=== PATIENT | female | born 1985 | race Caucasian/White ===

== ENCOUNTER 2016-05-14 11:49 | Emergency (ER) | payer SELFPAY ==
[2016-05-14 12:52] LABS: BASOPHILS 0.1 % (0.0-2.0); EOSINOPHILS 1.4 % (0-7); HEMATOCRIT 37.1 % (36.0-48.0); HEMOGLOBIN 12.4 g/dL (12-16); IMMATURE GRANULOCYTES 0.1 % (0-5); LYMPHOCYTES 28.3 % (15-50); MCH 30.9 pg (26.0-34.0); MCHC 33.4 g/dL (31.0-37.0); MCV 92.5 fL (80.0-100.0); MONOCYTES 6.5 % (2-11); NEUTROPHILS 63.6 % (40-80); PLATELET COUNT 239 10x3/uL (130-400); RBC 4.01 10x6/uL (4.00-5.40); RDW 12.8 % (11.5-14.5)
[2016-05-14 12:54] LABS: APPEARANCE CLEAR (CLEAR); BILIRUBIN NEGATIVE (NEGATIVE); COLOR YELLOW (YELLOW); GLUCOSE NEGATIVE (NEGATIVE); KETONE NEGATIVE (NEGATIVE); LEUKOCYTE ESTERASE NEGATIVE (NEGATIVE); NITRITE NEGATIVE (NEGATIVE); PROTEIN NEGATIVE (NEGATIVE); SPECIFIC GRAVITY 1.015 (1.005-1.020); UROBILINOGEN NORMAL (NORMAL)
[2016-05-14 13:08] LABS: ALBUMIN 3.8 g/dL (3.4-5.0); ALKALINE PHOSPHATASE 49 U/L (46-116); ALT (SGPT) 29 U/L (10-68); CALC OSMOLALITY 275 mosm/kg (275-300); CALCIUM 9.2 mg/dL (8.5-10.1); CHLORIDE - SERUM 102 mmol/L (98-107); CREATININE - SERUM 0.6 mg/dL (0.6-1.3); GLUCOSE 89 mg/dL (74-106); POTASSIUM - SERUM 3.7 mmol/L (3.5-5.1); PROTEIN - SERUM 7.9 g/dL (6.4-8.2); SODIUM 138 mmol/L (136-145); UREA NITROGEN 14 mg/dL (7-18); eGFR NON AFRICAN AMERICAN > 90 mL/min (90-120)
[2016-05-14 13:30] LABS: HCG - QUANTITATIVE (MATERNAL) 27029 mIU/mL
== END 2016-05-14 15:14 | disposition home or self-care (01) ==
LOC: D.ER 11:49
PROVIDERS: Emergency Medicine
DX: O34.81 Maternal care for other abnormalities of pelvic organs, first trimester (principal); N83.202 Unspecified ovarian cyst, left side; Z3A.01 Less than 8 weeks gestation of pregnancy

== ENCOUNTER 2017-09-04 17:58 | Emergency (ER) | payer MEDICAID ==
[~2017-09-04] VITALS: Ht 175.3 cm; Wt 88.6 kg
[2017-09-04 18:00] VITALS: BP 129/79; Ht 175.3 cm; Wt 88.6 kg
[2017-09-04] MEDS ORDERED: CELEXA10 MG PO (18:02)
[2017-09-04] MEDS ORDERED: VALIUM10 MG PO (18:03)
[2017-09-04] MEDS ORDERED: ADDERALL 10 MG10 MG PO (18:03)
[2017-09-04 19:11] LABS: BASOPHILS 0.2 % (0-2); EOSINOPHILS 0.2 % (0-7); HEMATOCRIT 38.1 % (36.0-48.0); IMMATURE GRANULOCYTES 0.2 % (0-5); LYMPHOCYTES 9.5 % (15-50); MCH 31.6 pg (26.0-34.0); MCHC 34.1 g/dL (31.0-37.0); MCV 92.7 fL (80.0-100.0); MEAN PLATELET VOLUME 10.9 fL (7.4-10.4); NEUTROPHILS 85.9 % (40-80); PLATELET COUNT 261 10x3/uL (130-400); RBC 4.11 10x6/uL (4.00-5.40); RDW 14.3 % (11.5-14.5); WBC 12.7 10x3/uL (4.8-10.8)
[2017-09-04 19:24] LABS: ALBUMIN 3.6 g/dL (3.4-5.0); ALKALINE PHOSPHATASE 80 U/L (46-116); ALT (SGPT) 22 U/L (10-68); BILIRUBIN - TOTAL 0.36 mg/dL (0.2-1.3); CALC OSMOLALITY 281 mosm/kg (275-300); CALCIUM 8.7 mg/dL (8.5-10.1); CARBON DIOXIDE 26.3 mmol/L (21.0-32.0); CHLORIDE - SERUM 108 mmol/L (98-107); CREATININE - SERUM 0.9 mg/dL (0.6-1.3); GLUCOSE 93 mg/dL (74-106); POTASSIUM - SERUM 3.9 mmol/L (3.5-5.1); PROTEIN - SERUM 7.5 g/dL (6.4-8.2); SODIUM 142 mmol/L (136-145); UREA NITROGEN 10 mg/dL (7-18); eGFR NON AFRICAN AMERICAN 78 mL/min (90-120)
[2017-09-04 19:34] LABS: THYROID STIMULATING HORMONE 0.52 uIU/mL (0.36-3.74)
[2017-09-04 20:18] LABS: APPEARANCE CLEAR (CLEAR); BILIRUBIN NEGATIVE (NEGATIVE); COLOR YELLOW (YELLOW); GLUCOSE NEGATIVE (NEGATIVE); KETONE SMALL mg/dL (NEGATIVE); NITRITE NEGATIVE (NEGATIVE); PROTEIN NEGATIVE (NEGATIVE); UROBILINOGEN NORMAL (NORMAL)
[2017-09-04 20:19] LABS: HCG SERUM NEGATIVE (NEGATIVE)
[2017-09-04 20:27] LABS: UDS - AMPHET NEGATIVE QUAL (NEGATIVE); UDS - BARB NEGATIVE QUAL (NEGATIVE); UDS - BENZO POSITIVE QUAL (NEGATIVE); UDS - COCAINE NEGATIVE QUAL (NEGATIVE); UDS - OPIATE NEGATIVE QUAL (NEGATIVE); UDS - PCP NEGATIVE QUAL (NEGATIVE); UDS - THC POSITIVE QUAL (NEGATIVE)
== END 2017-09-04 23:12 | disposition home or self-care (01) ==
LOC: D.ER 17:58
PROVIDERS: Emergency Medicine; Family Medicine
DX: F53 Mental and behavioral disorders associated with the puerperium, not elsewhere classified (principal); F41.9 Anxiety disorder, unspecified; F17.200 Nicotine dependence, unspecified, uncomplicated

== ENCOUNTER 2017-12-14 01:07 | Emergency (ER) | payer MEDICAID ==
[~2017-12-14] VITALS: Ht 175.3 cm; Wt 75.0 kg
[~2017-12-14 01:07] MED LIST: ADDERALL 10 MG10 MG PO; CELEXA10 MG PO; VALIUM10 MG PO
[2017-12-14 01:10] VITALS: Ht 175.3 cm; Wt 75.0 kg
[2017-12-14 01:51] VITALS: BP 129/88
== END 2017-12-14 01:40 | disposition home or self-care (01) ==
LOC: D.ER 01:07
DX: S00.83XA Contusion of other part of head, initial encounter (principal); W22.8XXA Striking against or struck by other objects, initial encounter; Y93.89 Activity, other specified; Y92.019 Unspecified place in single-family (private) house as the place of occurrence of the external cause; S00.81XA Abrasion of other part of head, initial encounter; G40.909 Epilepsy, unspecified, not intractable, without status epilepticus

== ENCOUNTER 2018-02-02 21:45 | Emergency (ER) | payer MEDICAID ==
[~2018-02-02] VITALS: Ht 175.3 cm; Wt 71.8 kg
[2018-02-02 21:48] VITALS: Ht 175.3 cm; Wt 71.8 kg
[2018-02-02 23:04] LABS: BASOPHILS 0.2 % (0-2); EOSINOPHILS 0.8 % (0-7); HEMATOCRIT 36.4 % (36.0-48.0); HEMOGLOBIN 12.2 g/dL (12-16); IMMATURE GRANULOCYTES 0.1 % (0-5); MCH 31.6 pg (26.0-34.0); MCHC 33.5 g/dL (31.0-37.0); MCV 94.3 fL (80.0-100.0); MEAN PLATELET VOLUME 11.2 fL (7.4-10.4); MONOCYTES 4.9 % (2-11); PLATELET COUNT 209 10x3/uL (130-400); RBC 3.86 10x6/uL (4.00-5.40); RDW 14.2 % (11.5-14.5); WBC 8.6 10x3/uL (4.8-10.8)
[2018-02-02 23:19] LABS: APTT 26.3 SECONDS (22.8-39.4); INR 1.02 (0.85-1.17); PROTIME 13.1 SECONDS (11.6-15.0)
[2018-02-02 23:30] LABS: ALBUMIN 3.4 g/dL (3.4-5.0); ALKALINE PHOSPHATASE 51 U/L (46-116); ALT (SGPT) 38 U/L (10-68); BILIRUBIN - TOTAL 0.24 mg/dL (0.2-1.3); CALC OSMOLALITY 277 mosm/kg (275-300); CALCIUM 8.9 mg/dL (8.5-10.1); CARBON DIOXIDE 25.3 mmol/L (21.0-32.0); CHLORIDE - SERUM 105 mmol/L (98-107); CREATININE - SERUM 0.6 mg/dL (0.6-1.3); GLUCOSE 92 mg/dL (74-106); POTASSIUM - SERUM 4.3 mmol/L (3.5-5.1); PROTEIN - SERUM 7.1 g/dL (6.4-8.2); SODIUM 140 mmol/L (136-145); UREA NITROGEN 9 mg/dL (7-18); eGFR NON AFRICAN AMERICAN > 90 mL/min (90-120)
[2018-02-02 23:35] LABS: APPEARANCE CLEAR (CLEAR); BILIRUBIN NEGATIVE (NEGATIVE); COLOR YELLOW (YELLOW); GLUCOSE NEGATIVE (NEGATIVE); KETONE NEGATIVE (NEGATIVE); NITRITE NEGATIVE (NEGATIVE); PROTEIN NEGATIVE (NEGATIVE); SPECIFIC GRAVITY 1.015 (1.005-1.020); UROBILINOGEN NORMAL (NORMAL)
[2018-02-02 23:36] LABS: BACTERIA NONE SEEN /hpf (NONE SEEN); EPITHELIAL CELLS 0-5 /hpf (0-5); RED CELLS - URINE NONE SEEN /hpf (0-5); WHITE CELLS - URINE 0-5 /hpf (0-5)
[2018-02-02] MEDS ORDERED: IBUPROFEN800 MG PO (23:49)
[2018-02-02] MEDS ORDERED: ACETAMINOPHEN500 M1 PO (23:49)
[2018-02-02] MEDS ORDERED: CYCLOBENZAPRINE10 MG PO (23:49)
[2018-02-03 01:21] VITALS: BP 127/87
== END 2018-02-03 01:00 | disposition home or self-care (01) ==
LOC: D.ER 21:45
PROVIDERS: Family Medicine
DX: R51 Headache (principal); M25.512 Pain in left shoulder; M54.2 Cervicalgia; M54.6 Pain in thoracic spine; F17.200 Nicotine dependence, unspecified, uncomplicated; V43.52XA Car driver injured in collision with other type car in traffic accident, initial encounter; Y93.89 Activity, other specified; Y92.410 Unspecified street and highway as the place of occurrence of the external cause

== ENCOUNTER 2018-05-08 17:29 | Inpatient (IN) | payer MEDICAID ==
[~2018-05-08] VITALS: Ht 175.3 cm; Wt 81.1 kg
[~2018-05-08 17:29] MED LIST changes: +ACETAMINOPHEN500 M1 PO; +CYCLOBENZAPRINE10 MG PO; +IBUPROFEN800 MG PO
[2018-05-08 18:57] LABS: BASOPHILS 0.2 % (0-2); EOSINOPHILS 0.2 % (0-7); HEMATOCRIT 35.5 % (36.0-48.0); HEMOGLOBIN 11.9 g/dL (12-16); IMMATURE GRANULOCYTES 0.3 % (0-5); LYMPHOCYTES 14.6 % (15-50); MCHC 33.5 g/dL (31.0-37.0); MCV 92.4 fL (80.0-100.0); MEAN PLATELET VOLUME 10.3 fL (7.4-10.4); MONOCYTES 8.5 % (2-11); NEUTROPHILS 76.2 % (40-80); PLATELET COUNT 242 10x3/uL (130-400); RBC 3.84 10x6/uL (4.00-5.40); RDW 12.7 % (11.5-14.5); WBC 10.6 10x3/uL (4.8-10.8)
--- NOTE | 2018-05-08 19:04 | NUR ---
PT ALERT. FLU SWAB OBTAINED AND SENT TO LAB.
[2018-05-08 19:23] LABS: APPEARANCE CLOUDY (CLEAR); BILIRUBIN NEGATIVE (NEGATIVE); COLOR STRAW (YELLOW); GLUCOSE NEGATIVE (NEGATIVE); KETONE NEGATIVE (NEGATIVE); NITRITE NEGATIVE (NEGATIVE); PROTEIN TRACE mg/dL (NEGATIVE); UROBILINOGEN NORMAL (NORMAL)
[2018-05-08 19:25] LABS: BACTERIA FEW /hpf (NONE SEEN); EPITHELIAL CELLS 0-5 /hpf (0-5); RED CELLS - URINE 0-5 /hpf (0-5); WHITE CELLS - URINE >50 /hpf (0-5)
[2018-05-08 19:26] LABS: ALBUMIN 3.3 g/dL (3.4-5.0); ALKALINE PHOSPHATASE 87 U/L (46-116); ALT (SGPT) 22 U/L (10-68); BILIRUBIN - TOTAL 0.42 mg/dL (0.2-1.3); CALC OSMOLALITY 268 mosm/kg (275-300); CALCIUM 8.4 mg/dL (8.5-10.1); CARBON DIOXIDE 25.1 mmol/L (21.0-32.0); CHLORIDE - SERUM 101 mmol/L (98-107); CREATININE - SERUM 0.8 mg/dL (0.6-1.3); GLUCOSE 107 mg/dL (74-106); PROTEIN - SERUM 8.1 g/dL (6.4-8.2); SODIUM 135 mmol/L (136-145); UREA NITROGEN 10 mg/dL (7-18); eGFR NON AFRICAN AMERICAN 89 mL/min (90-120)
[2018-05-08 20:25] LABS: HCG URINE NEGATIVE (NEGATIVE)
[2018-05-08 22:00] VITALS: BP 108/63
--- NOTE | 2018-05-08 23:00 | NUR ---
RECEIVED FROM ER VIA WC. STATING SHE IS IN EXTREME PAIN OF HER LEFT SIDE AND CHEST PAIN DESCRIBED SHARP. CLUTCHING HER CHEST AND BENDING OVER. STATED SHE WAS NOT IN THIS MUCH PAIN BEFORE THE DOSE OF DILAUDID ADMINISTER BEFORE GETTING IN THE WHEELCHAIR TO BE TRANSPORTED TO [facility]. PLEADING FOR HELP. TRIED TO GET AN EKG, BUT COULD NOT GET HER OUT OF THE POSITION. GOT HER AN EMESIS BAG FOR NAUSEA, BUT SHE COULD NOT "THROW UP".
--- NOTE | 2018-05-08 23:15 | NUR ---
CALLED DR GARCIA RE: PATIENT'S C/O CHEST PAIN LEVEL 10 ON NUMBER SCALE DESCRIBED SHARP, SHOOTING PAIN. ORDERED PYRIDIUM 100MG TID.
--- NOTE | 2018-05-08 23:15 | NUR ---
CHARGE NURSE "VESNA" CALLED [facility]. FOUND PATIENT ON THE FLOOR CURLED UP INTO A POSITION, C/O "EXCRUIATING CHEST, ABD AND BACK PAIN. ICU NURSE "PHIL" CALLED DR GARCIA AND RECEIVED ORDER TO ADMIN NS 150ML/HR IV AND CHANGED TORADOL 15MG IV TO Q6HR SCHED. EKG SHOWED NORMAL SR.
[2018-05-08 23:52] VITALS: BP 127/63
--- NOTE | 2018-05-09 01:20 | NUR ---
ALERT/AWAKE SITTING UP IN BED TALKING TO A VISITOR. ADMIN SCHED TORADOL 15MG IV. RATES PAIN LEVEL AT 8/10 NUMBER SCALE DESCRIBED SHARP, SQUEEZING PAIN AROUND HER KIDNEYS.
--- NOTE | 2018-05-09 03:12 | NUR ---
TAYA MCKEON" PULLED PYRIDIUM 100MG TAB. ADMIN TO PATIENT. C/O NOT GETTING COMPLETED PAIN RELIEF AND WANTS TO LEAVE TO GO TO ANOTHER FACILITY.
[2018-05-09 03:45] VITALS: BP 100/59
[2018-05-09 04:12] VITALS: BP 127/63; Ht 175.3 cm; Wt 81.1 kg
--- NOTE | 2018-05-09 05:00 | NUR ---
RESTING WITH NO DISTRESS. RESPS EVEN/NONLABORED. MONITOR AND CPOC.
[2018-05-09 06:44] LABS: CALC OSMOLALITY 277 mosm/kg (275-300); CARBON DIOXIDE 23.8 mmol/L (21.0-32.0); CHLORIDE - SERUM 106 mmol/L (98-107); CREATININE - SERUM 0.6 mg/dL (0.6-1.3); GLUCOSE 100 mg/dL (74-106); MAGNESIUM - SERUM 1.9 mg/dL (1.8-2.4); POTASSIUM - SERUM 3.7 mmol/L (3.5-5.1); SODIUM 139 mmol/L (136-145); eGFR NON AFRICAN AMERICAN > 90 mL/min (90-120)
[2018-05-09 06:45] LABS: BASOPHILS 0.1 % (0-2); EOSINOPHILS 0.8 % (0-7); IMMATURE GRANULOCYTES 0.2 % (0-5); LYMPHOCYTES 26.5 % (15-50); MCH 30.7 pg (26.0-34.0); MCHC 33.1 g/dL (31.0-37.0); MCV 92.7 fL (80.0-100.0); MEAN PLATELET VOLUME 10.9 fL (7.4-10.4); NEUTROPHILS 61.4 % (40-80); PLATELET COUNT 239 10x3/uL (130-400); WBC 8.5 10x3/uL (4.8-10.8)
[2018-05-09 06:53] LABS: HEMATOCRIT 28.1 % (36.0-48.0); HEMOGLOBIN 9.3 g/dL (12-16); RBC 3.03 10x6/uL (4.00-5.40)
[2018-05-09 07:34] LABS: UREA NITROGEN 13 mg/dL (7-18)
--- NOTE | 2018-05-09 08:11 | NUR ---
PT UPSET AND STATING SHE GOT TOLD BY PHARMACEUTICAL SERVICE REPRESENTATIVE SHE WOULD BE ABLE TO LEAVE AND COME BACK OUTPATIENT TO RECIEVE ABX. PT ALSO STATES SHE NEEDS TO MAKE ARRANGEMENTS FOR HER TWO KIDS IF SHE IS "GOING TO STAY IN THIS [facility]." SHE ALSO STATES SHE "IS IN THE SAME PAIN I CAME IN WITH AND THE MEDICATION I'M GETTING FOR THE PAIN IS NOT HELPING. I CAN BE IN HTIS MUCH PAIN AT HOME." I STATED TO PT LET ME MAKE SOME CALLS AND I WILL BE BACK. SPOKE WITH ASHLIE ROMERO AND SHE STATES SHE TOLD PT THEY MAY BE ABLE TO ARRANGE OUTPATIENT SERVICES BUT THAT IS UP TO CASE MANAGEMENT. SHE STATES FOR ME TO SPEAK WITH [employer]IC[employer] ADVERTISING SALES MANAGER. I SPOKE WITH NICHO ADVERTISING SALES MANAGER AND HE STATES THAT IS UP TO THE DOCTOR IF THEY WILL MAKE THOSE ARRANGEMENTS AND I NEED A DOCTORS ORDER. ДМИТРИЙ FRAZIER.
--- NOTE | 2018-05-09 08:29 | NUR ---
SPOKE WITH LUC FRAZEIR AND SHE STATES SHE WON'T DO ANY OUTPATIENT ARRANGMENTS OR DISCHARGE UNTIL PT IS SEEN BY MD. SHE STATES IF PT IS NOT ALLERGIC TO HYDROCODONE SHE CAN HAVE THAT 5MG Q4HP FOR BREAKTHROUGH PAIN AND TO DC DILAUDID.
--- NOTE | 2018-05-09 08:32 | NUR ---
SPOKE WOTH PT ABOUT MY CONVERSATIONS WITH ALGEBRA TEACHER, CASE MANAGEMENT, AND THE NURSE PRACTIONER AND THAT THE NURSE PRACTIONER STATED SHE WILL HAVE TO WAIT TILL PT IS SEEN BY MD BEFORE ANY ARRANGEMENTS CAN BE MADE. SHE VERBALIZED UNDERSTANDING. PT ALSO STATES SHE HAS TAKEN HYDROCODONE BEFORE AND WAS FINE.
[2018-05-09 08:44] VITALS: BP 101/60
[2018-05-09 12:02] VITALS: BP 103/68
--- NOTE | 2018-05-09 13:23 | NUR ---
IV WRAPPED AND PT TAKING A SHOWER.
--- NOTE | 2018-05-09 14:56 | NUR ---
RATIONALE FOR SCD'S EXPLAINED. REFUSED SCD'S
[2018-05-09 16:01] VITALS: BP 120/77
[2018-05-09 19:04] LABS: % SATURATION 10 % (15-55); IRON 25 ug/dl (35-150); TOTAL IRON BIND CAPACITY 242 ug/dl (260-445); UNSAT IRON BIND CAPACITY 217 ug/dl (150-375)
[2018-05-09 20:00] VITALS: BP 107/60
[2018-05-10] VITALS: BP 111/58
--- NOTE | 2018-05-10 03:00 | NUR ---
LYING IN BED WITH EYES CLOSED, CALL LIGHT IN REACH. WILL CONTINUE WITH PLAN OF CARE.
--- NOTE | 2018-05-10 03:45 | NUR ---
RESTING WITH EYES CLOSED, RESPERATIONS EVEN, NO S/S DISTRESS NOTED.
[2018-05-10 04:00] VITALS: BP 103/62
[2018-05-10 05:31] LABS: BASOPHILS 0.2 % (0-2); EOSINOPHILS 1.9 % (0-7); HEMATOCRIT 30.4 % (36.0-48.0); IMMATURE GRANULOCYTES 0.2 % (0-5); LYMPHOCYTES 37.5 % (15-50); MCH 30.8 pg (26.0-34.0); MCHC 32.9 g/dL (31.0-37.0); MCV 93.5 fL (80.0-100.0); MEAN PLATELET VOLUME 10.9 fL (7.4-10.4); NEUTROPHILS 50.2 % (40-80); RBC 3.25 10x6/uL (4.00-5.40)
[2018-05-10 05:48] LABS: PLATELET COUNT 189 10x3/uL (130-400); WBC 5.2 10x3/uL (4.8-10.8)
[2018-05-10 05:59] LABS: ALKALINE PHOSPHATASE 119 U/L (46-116); BILIRUBIN - TOTAL 0.25 mg/dL (0.2-1.3); CALC OSMOLALITY 277 mosm/kg (275-300); CALCIUM 7.6 mg/dL (8.5-10.1); CARBON DIOXIDE 20.6 mmol/L (21.0-32.0); CHLORIDE - SERUM 108 mmol/L (98-107); CREATININE - SERUM 0.6 mg/dL (0.6-1.3); GLUCOSE 83 mg/dL (74-106); PROTEIN - SERUM 6.2 g/dL (6.4-8.2); SODIUM 140 mmol/L (136-145); UREA NITROGEN 12 mg/dL (7-18); eGFR NON AFRICAN AMERICAN > 90 mL/min (90-120)
[2018-05-10 06:14] LABS: ALBUMIN 2.3 g/dL (3.4-5.0); ALT (SGPT) 126 U/L (10-68)
[2018-05-10 09:47] VITALS: BP 98/54
--- NOTE | 2018-05-10 15:17 | NUR ---
PT DC HOME. LEFT WRIST 20G IV DC'D WITH CATH INTACT.
[2018-05-10] MEDS ORDERED: HYDROCODON-ACE1 EAC7 PO (15:56)
[2018-05-10] MEDS ORDERED: LEVAQUIN750 MG PO (15:57)
--- NOTE | 2018-05-10 16:29 | MORECARE ---
CASE MANAGEMENT DISCHARGE SUMMARY PATIENT: TWIN AQUINO UNIT: [id number] ADM DATE: 05/08/18 AGE: 32 : 89 SEX: F ROOM/BED: D.6379 AUTHOR: MARIBELL KOHLI PHYSICIAN: REFERRING PHYSICIAN: SABA GARCIA MD DATE OF SERVICE: 05/10/18 Discharge Plan Patient Name: TWIN AQUINO Facility: [facility]:[place] : 1985 Planned Disposition: Home Anticipated Discharge Date: 05/10/18 Discharge Date: Expected LOS: 2 Initial Reviewer: [email or web address] Initial Review Date: 05/08/2018 Generated: 05/10/18 5:29 pm DCPIA - Discharge Planning Initial Assessment Updated by [email or web address]: Chadwick Palma on 05/10/18 4:28 pm * Is the patient Alert and Oriented? Yes * How many steps to enter\exit or inside your home? * PCP DR. VALDIVIA * Pharmacy [facility] IN [place] * Preadmission Environment Home Alone * ADLs Independent * Equipment None * Other Equipment NO MEDICAL EQUIPMENT PROVIDER PREFERENCE * List name and contact numbers for known caregivers / representatives who currently or will assist patient after discharge: KULWINDER ESPOSITO, SPOUSE, * Verbal permission to speak to the caregivers and representatives has been obtained from the patient. N/A * Community resources currently utilized None * Please name any agencies selected above. NONE * Additional services required to return to the preadmission environment? No * Can the patient safely return to the preadmission environment? Yes * Has this patient been hospitalized within the prior 30 days at any hospital? No Patient Name: TWIN AQUINO Page [id number] at 1629 All edits/amendments must be made on the electronic document DICTATION DATE: 05/10/181628 GARMENT INSPECTOR: GENTRY 05/10/181628 RPT#: [id number] DC DATE: STATUS: ADM IN [place] [address] [place] [address] END OF REPORT
[2018-05-10] MEDS ORDERED: ZOFRAN4 MG PO (16:51)
--- NOTE | 2018-05-10 17:10 | NUR ---
DISCHARGE INSTRUCTIONS GIVEN TO PT. NO FURTHER QUESTIONS. [place] WRITTEN SCRIPT GIVEN TO PT. CHART COPY SIGNED.
--- NOTE | 2018-05-10 17:45 | NUR ---
PT LEFT WITH FRIEND.
[2018-05-11 09:19] LABS: FOLATE (FOLIC ACID) - SERUM 4.2 ng/mL (>3.0)
[2018-05-11 11:20] LABS: CHLAMYDIA TRACHOMATIS, NAA Negative (Negative)
== END 2018-05-10 17:45 | disposition home or self-care (01) | DRG 690 ==
LOC: D.ER 17:29 → D.M2 21:49 → D.EDHOLD 21:49 → D.M2 22:28
PROVIDERS: Family Medicine; Family Medicine Adult Medicine; ADMIT Internal Medicine Nephrology
DX: N10 Acute pyelonephritis (principal); D64.9 Anemia, unspecified; F43.10 Post-traumatic stress disorder, unspecified; R51 Headache; F40.10 Social phobia, unspecified